=== PATIENT | male | born 1980 | race Caucasian/White ===

== ENCOUNTER → 2018-05-11 | Day surgery (SDC) | payer BC ==
[~2018-05-11] MED LIST: ANECREAM5 GM TOP; BACTRIM DS TAB1 EACH PO; DOXYCYCLINE 10100 MG PO; HYDROCORTISONE30 G9 RECTAL; MEDROLDOSEPACK PO; NORCO 7.5-3251 EACH PO; STOOL SOFTENER100 MG PO; TESTOSTERONE; TYLENOL325 MG PO
--- NOTE | 2018-05-15 13:10 | PATH ---
[address] [address] PATHOLOGY RPT PROCEDURE Name: NICOLÁS PAZ Room: [facility]..#: [id number] Admission: 05/11/18 Date of : 76 Discharge: Report #: [id number] Path Case #: [id number] [facility] Accession Number: [id number] . 01 Material submitted: . HEMORRHOID . 01 Clinical history: . Thrombosed external hemorrhoid . 02 Diagnosis: Hemorrhoid: - Benign skin with prominent hemorrhoid showing organizing thrombosis, overlying ulceration and acute inflammation. (XOCHITL:mason; 05/15/2018) QMS/05/15/2018 . 02 Electronically signed: . Jassi Del Toro MD, Pathologist NPI- [id number] . 01 Gross description: . The specimen is received in formalin, labeled "Nicolás Nomi, hemorrhoid". Received is a segment of epithelial-covered tissue measuring 2.3 x 1.7 x 1.5 cm in greatest dimensions. Sectioning reveals highly vascularized cut surfaces. No distinct nodules or lesions are noted grossly. The specimen is submitted representatively in cassette A1. (CAA; 05/14/2018) QAC/QAC . 02 Pathologist provided ICD-10: K64.5 . 02 CPT . 856446 Performed at: [address], [id number] MD Lazaro Stephens MD Phone: [phone] Performed at: [address] [facility] [address], [place], [place] [id number] MD Jassi Del Toro MD Phone: [phone]
--- NOTE | 2018-05-22 10:19 | OP ---
[address] [address] OPERATIVE REPORT Name: NICOLÁS PAZ Room: [facility]#: [id number] Admission: 05/11/18 Attend Phys: Nicolás Miller DO Discharge: Date of : 76 Report #: [id number] THIS REPORT FOR: //name// CC: Nicolás Vela DO DATE OF SERVICE: 05/11/2018 PREOPERATIVE DIAGNOSIS: Thrombosed external hemorrhoid at the 4 o'clock position. POSTOPERATIVE DIAGNOSIS: Thrombosed external hemorrhoid at the 4 o'clock position. PROCEDURE: Anal exam under anesthesia and external hemorrhoidectomy x 1, complex. SURGEON: Nicolás Miller DO. CROP NUTRITION SCIENTIST: Dr. Rajeev Song. ANESTHESIA: General with an LMA. ESTIMATED BLOOD LOSS: Less than 20 mL. COMPLICATIONS: None. DESCRIPTION OF PROCEDURE: After obtaining proper consents and discussing risks and complications with the patient, he was taken to the operating room, laid in the supine position, administered general anesthesia. He was then placed in lithotomy position, prepped and draped in the usual fashion. A timeout was performed. We confirmed the appropriate patient and procedure. Digital rectal examination was then performed, which revealed a very large thrombosed external hemorrhoid with multiple different areas of necrosis. There were no other gross abnormalities. The patient did have quite a bit of hard stool in the rectal vault, but other than that nothing abnormal. I then used a Liliane anal speculum to identify any other pathology and finding none, we then used the Liliane speculum in order to excise the thrombosed external hemorrhoid at the 4 o'clock position. This was done by first injecting with 0.5% Marcaine and then making a V-shaped incision in the anoderm. I then dissected the hemorrhoid off the sphincter muscles and using a Harmonic scalpel, we excised the large hemorrhoid. This was then passed off as specimen. I then closed the mucosa and also the anoderm using interrupted 2-0 Vicryl sutures. We then cleaned the area. Sterile dressing was placed and we also placed lidocaine 5% [place] [address] OPERATIVE REPORT Name: NICOLÁS PAZ Room: [facility]#: [id number] Admission: 05/11/18 Attend Phys: Nicolás Miller DO Discharge: Date of : 76 Report #: [id number] The patient tolerated the procedure well and was awakened in the operating room and transported to the recovery room in stable condition. <ELECTRONICALLY SIGNED> By: Nicolás Miller DO 05/22/18 [id number] 1856Amichelle Miller DO /nt
== END | disposition home or self-care (01) ==
LOC: M.SUR 10:35
DX: K64.5 Perianal venous thrombosis (principal); Z98.890 Other specified postprocedural states; Z79.891 Long term (current) use of opiate analgesic

== ENCOUNTER → 2019-11-15 | Outpatient (CLI) | payer BC | LOC: M.ULTRA 09:18 | DX: R16.0 Hepatomegaly, not elsewhere classified (principal); R74.8 Abnormal levels of other serum enzymes ==